=== PATIENT | female | born 1950 | race Caucasian/White ===

== ENCOUNTER 2017-10-13 07:06 | Emergency (ER) | payer BC ==
[~2017-10-13] VITALS: Ht 157.5 cm; Wt 77.0 kg
[2017-10-13] MEDS ORDERED: TRAMADOL 50MG TABLET PO ONE (10:15)
[2017-10-13 12:45] VITALS: BP 151/91
[2017-10-13] MEDS ORDERED: SODIUM CHLORIDE 0.9% 1,000 ML IV ONE (13:00)
== END 2017-10-13 14:37 | disposition home or self-care (01) ==
LOC: ER 07:28
DX: S70.02XA Contusion of left hip, initial encounter (principal); Y93.01 Activity, walking, marching and hiking; V03.10XA Pedestrian on foot injured in collision with car, pick-up truck or van in traffic accident, initial encounter; Y92.410 Unspecified street and highway as the place of occurrence of the external cause; I10 Essential (primary) hypertension; Z90.710 Acquired absence of both cervix and uterus
CPT/HCPCS: 73502; 73552; 73562; 99284; Z7610; J7030

== ENCOUNTER 2017-10-15 16:50 | Emergency (ER) | payer BC ==
[~2017-10-15] VITALS: Ht 157.5 cm; Wt 77.0 kg
[2017-10-15 16:52] VITALS: BP 172/80
== END 2017-10-15 18:20 | disposition home or self-care (01) ==
LOC: ER 17:13
DX: S46.812A Strain of other muscles, fascia and tendons at shoulder and upper arm level, left arm, initial encounter (principal); S46.811A Strain of other muscles, fascia and tendons at shoulder and upper arm level, right arm, initial encounter; M25.552 Pain in left hip; M25.561 Pain in right knee; M25.562 Pain in left knee; I10 Essential (primary) hypertension; M62.838 Other muscle spasm; X58.XXXA Exposure to other specified factors, initial encounter; Y93.89 Activity, other specified; Y99.8 Other external cause status; Y92.89 Other specified places as the place of occurrence of the external cause
CPT/HCPCS: 99283